=== PATIENT | male | born 1995 | race Caucasian/White ===

== ENCOUNTER 2019-02-27 21:12 | Emergency (ER) | payer MEDICAID ==
[~2019-02-27] VITALS: Ht 177.8 cm; Wt 77.1 kg
--- NOTE | 2019-02-27 21:46 | NUR ---
ER Dr. Lopez in triage room examining patient.
[2019-02-27 21:54] VITALS: BP_SYST 116
--- NOTE | 2019-02-27 22:06 | NUR ---
Patient to ER bed 2 to gown for evaluation. Side rails up.
--- NOTE | 2019-02-27 22:10 | NUR ---
Pt ambulated to bed 2 complaining of right foot pain for the past 2 months. Pt states he has a foot fracture and cannot take the pain. Pt stated pain is 8/10. NO other injuries/complaints per patient or noted.
[2019-02-27] MEDS ORDERED: IBUPROFEN 600 MG TABLET PO ONE (22:15)
[2019-02-27] MEDS ORDERED: HYDROcodone/ACETAMIN 5-325 MG TAB (NORCO/ VICODIN) PO ONE (22:15)
[2019-02-27 22:50] VITALS: BP_SYST 117
--- NOTE | 2019-02-27 22:50 | NUR ---
Patient given written and verbal discharge instructions and verbalizes understanding. ER MD discussed with patient the results and treatment provided. Patient in stable condition. ID arm band removed. Rx of Bryant given. Patient educated on pain management and to follow up with PMD. Pain Scale 0. Opportunity for questions provided and answered. Medication side effect fact sheet provided.
== END 2019-02-27 22:50 | disposition home or self-care (01) ==
LOC: SED 21:12
DX: M72.2 Plantar fascial fibromatosis (principal); G89.29 Other chronic pain; M79.671 Pain in right foot; F17.200 Nicotine dependence, unspecified, uncomplicated; Z71.6 Tobacco abuse counseling
CPT/HCPCS: 99283